=== PATIENT | male | born 1990 | race Caucasian/White ===

== ENCOUNTER 2019-01-07 16:20 | Emergency (ER) | payer MEDICAID, OTHER ==
[~2019-01-07] VITALS: Ht 190.5 cm; Wt 86.2 kg
--- NOTE | 2019-01-07 16:40 | NUR ---
BIB [employer], PT STATED SWALLOWED A BAG OF FENTANYL. PATIENT A/OX4, BREATHING EVEN AND UNLABORED, NO SOB NOTED, PLACED ON THE MONITOR, VSS. WILL CONTINUE TO MONITOR.
[2019-01-07] MEDS ORDERED: IV NS 0.9% 1,000 ML BAG IV ONE (17:00)
[2019-01-07 17:11] LABS: BASOPHILS % (AUTO) 0.7 % (0.0-2.0); EOSINOPHILS % (AUTO) 2.4 % (0.0-6.0); HEMATOCRIT 39 % (39-51); HEMOGLOBIN 13.8 g/dL (13.5-17.5); LYMPHOCYTES # (AUTO) 1.3 /CMM (0.8-4.8); LYMPHOCYTES % (AUTO) 18.5 % (20.0-44.0); MEAN CORPUSCULAR HGB CONC 35 g/dl (31.0-36.0); MEAN CORPUSCULAR VOLUME 83 fL (80-96); MONOCYTES # (AUTO) 0.7 /CMM (0.1-1.30); NEUTROPHILS # (AUTO) 4.6 /CMM (1.8-8.9); NEUTROPHILS % (AUTO) 68.4 % (43.0-81.0); PLATELET COUNT (AUTO) 186 /CMM (150-450); RED BLOOD CELL COUNT(AUTO) 4.76 MIL/uL (4.5-6.0); WHITE BLOOD COUNT (AUTO) 6.8 K/uL (4.3-11.0)
[2019-01-07 17:24] LABS: CARBON DIOXIDE 28 mmol/L (21-32); CHLORIDE 103 mmol/L (98-107); CREATININE 1.3 mg/dL (0.6-1.3); GLUCOSE 112 mg/dL (74-106); POTASSIUM 3.7 mmol/L (3.5-5.1); SODIUM SERUM 139 mmol/L (136-145); UREA NITROGEN, BLOOD 15 mg/dL (7-18)
[2019-01-07 17:29] LABS: ALCOHOL, BLOOD < 3 mg/dL (0-0)
--- NOTE | 2019-01-07 18:07 | NUR ---
GEOVANY ISSUED THE PATIENT A TICKET AND THEN LEFT, PATIENT IS RELEASED FROM CUSTODY. PATIENT A/OX4, BREATHING EVEN AND UNLABORED, NO SOB NOTED. PATIENT IN NO DISTRESS. PATIENT INSISTED ON LEAVING AMA, DR. DAY AWARE AND STATED HE CAN LEAVE AMA IF HE WANTS TO. EXPLAINED RISKS, BENEFITS, AND ALTERNATIVES TO THE PATIENT AND STILL INSISTED ON LEAVING. PIV REMOVED. PATIENT LEFT IN STABLE CONDITION.
[2019-01-07 18:11] VITALS: BP 160/92
== END 2019-01-07 18:13 | disposition left against medical advice (07) ==
LOC: ER 16:25
DX: T40.4X5A Adverse effect of other synthetic narcotics, initial encounter (principal); Z60.2 Problems related to living alone; Y92.89 Other specified places as the place of occurrence of the external cause
CPT/HCPCS: 36415; 71250; 74176; 80048; 80307; 85025; 85730; 99284; J7030; G0480

== ENCOUNTER 2019-02-07 15:52 | Inpatient (IN) | payer MEDICAID, OTHER ==
[~2019-02-07] VITALS: Ht 188 cm; Wt 82.1 kg
--- NOTE | 2019-02-07 16:17 | NUR ---
PT BIB [employer] [employer] IN CUSTODY WITH A C/O FOREIGN BODY INGESTION. PT ALLEGEDLY SWALLOWED A BAG OF FENTANYL PRIOR TO BEING ARRESTED. PT WAS TRIAGED AND TAKEN TO ER #[id number]. PT IS AA&O X 4. PT STATED THAT HE HAS DONE THIS BEFORE.
--- NOTE | 2019-02-07 16:17 | NUR ---
Radha george in ED - 02/07/19 at 1624 by AYLA PT [facility] WITH A C/O FOREIGN BODY INGESTION. PT ALLEGEDLY SWALLOWED A BAG OF FENTANYL PRIOR TO BEING ARRESTED. PT WAS TRIAGED AND TAKEN TO ER #[id number]
--- NOTE | 2019-02-07 16:22 | NUR ---
VIRA, NURSE ORTHO IS AT THE BEDSIDE.
[2019-02-07 16:34] LABS: BASOPHILS # (AUTO) 0.1 /CMM (0.0-0.2); BASOPHILS % (AUTO) 0.8 % (0.0-2.0); HEMATOCRIT 44 % (39-51); HEMOGLOBIN 14.8 g/dL (13.5-17.5); LYMPHOCYTES # (AUTO) 2.4 /CMM (0.8-4.8); LYMPHOCYTES % (AUTO) 31.8 % (20.0-44.0); MEAN CORPUSCULAR HGB CONC 34 g/dl (31.0-36.0); MEAN CORPUSCULAR VOLUME 84 fL (80-96); MONOCYTES % (AUTO) 12.7 % (2.0-12.0); NEUTROPHILS % (AUTO) 51.7 % (43.0-81.0); PLATELET COUNT (AUTO) 168 /CMM (150-450); RED BLOOD CELL COUNT(AUTO) 5.17 MIL/uL (4.5-6.0); WHITE BLOOD COUNT (AUTO) 7.7 K/uL (4.3-11.0)
--- NOTE | 2019-02-07 16:37 | NUR ---
CALLED POISON [facility], TRANSFERRED CALL TO
[2019-02-07 16:42] LABS: CALCIUM, SERUM 9.4 mg/dL (8.5-10.1); CARBON DIOXIDE 30 mmol/L (21-32); CHLORIDE 105 mmol/L (98-107); GLUCOSE 99 mg/dL (74-106); POTASSIUM 4.2 mmol/L (3.5-5.1); SODIUM SERUM 141 mmol/L (136-145); UREA NITROGEN, BLOOD 21 mg/dL (7-18)
[2019-02-07] MEDS ORDERED: ACTIVATED CHARCOAL 25 GM/120 ML TUBE ONE (16:46)
--- NOTE | 2019-02-07 16:50 | NUR ---
PT DRANK THE ACTIVATED CHARCOLE AND TOLERATED PO WELL.
--- NOTE | 2019-02-07 16:53 | NUR ---
IV INSERTION ATTEMPTED ON LAC UNSUCCESSFUL. PT IS A HARD STICK.
[2019-02-07 16:56] LABS: ALANINE AMINOTRANSFERASE 23 U/L (12-78); ALBUMIN 3.5 g/dL (3.4-5.0); ALCOHOL, BLOOD < 3 mg/dL (0-0); ALKALINE PHOSPHATASE 75 U/L (46-116); ASPARTATE AMINOTRANSFERASE 26 U/L (15-37); BILIRUBIN,DIRECT 0.1 mg/dL (0.0-0.2); BILIRUBIN,TOTAL 0.5 mg/dL (0.2-1.0); TOTAL PROTEIN, SERUM 7.2 g/dL (6.4-8.2)
--- NOTE | 2019-02-07 16:57 | NUR ---
PT LEFT FOR CT VIA [facility]
--- NOTE | 2019-02-07 16:58 | NUR ---
PT IS STILL UNABLE TO GIVE A URINE SAMPLE AT THIS TIME.
[2019-02-07 16:59] LABS: ACETAMINOPHEN < 2 ug/ml (10-30); SALICYLATE < 2.8 mg/dL (2.8-20.0)
[2019-02-07] MEDS ORDERED: ACTIVATED CHARCOAL 25 GM/120 ML TUBE PO ONE (17:00)
--- NOTE | 2019-02-07 17:03 | NUR ---
CALLED NURSING SUP. FOR MS BED
--- NOTE | 2019-02-07 17:22 | NUR ---
MS [id number]
--- NOTE | 2019-02-07 17:29 | NUR ---
REPORT GIVEN TO MISBAH FIELDS.
[2019-02-07] MEDS ORDERED: IV NS 0.9% 1,000 ML BAG IV ONE ×2 (17:30→18:00)
--- NOTE | 2019-02-07 18:05 | NUR ---
SPOKE TO [facility] TECH, VAN RE: PT BEING UNSTABLE.
--- NOTE | 2019-02-07 18:27 | NUR ---
PT IS BEING TRANSPORTED TO [place] [facility]IA [facility].
--- NOTE | 2019-02-07 19:30 | NUR ---
RN OPENING NOTES PT RECEIVED ASLEEP. RESPONSIVE TO NAME/TACTILE STIMULI. DOZING UPON ASKING HIM QUESTIONS BUT A/OX3. ON ROOM AIR, BREATHING EVEN AND UNLABORED. NO S/S OF ACUTE RESPIRATORY DISTRESS AT THIS TIME. IV TO RIGHT HAND PATENT AND INTACT. BELONGINGS LEFT IN DIRTY UTILITY ROOM WITH LABELS PLACED ON IT. ID/INSURANCE AND CHECKS THAT ARE NOT IN HIS NAME PLACED IN BAG WITH HIS LABEL ON IT. AND SENT DOWN TO NURSING PAD MACHINE OFFBEARER SAFE, DOCUMENTED ON BELONGINGS LIST. REFUSING TO BE PLACED INTO HOSPITAL GOWN AND SKIN CHECK AT THIS TIME. BED IN LOW/LOCKED POSITION WITH HOB ELEVATED, CALL LIGHT IN REACH. BILAT. UPPER SIDE RAILS IN PLACE AND BED ALARM ON FOR SAFETY. WILL CONTINUE TO CLOSELY MONITOR. ALSO PAGED DR. NANCY BURTON FOR ADMITTING ORDERS
--- NOTE | 2019-02-07 19:55 | NUR ---
RN NOTES NNACY BURTON MADE AWARE OF CT ABDOMEN RESULT
[2019-02-07 20:00] VITALS: BP 138/71
--- NOTE | 2019-02-07 20:00 | NUR ---
RN NOTES ON TELE MONITOR SB 58
--- NOTE | 2019-02-07 20:51 | NUR ---
RN JAE HINOJOSA FROM POISON CONTROL CALLED ASKING FOR UPDATES REGARDING PT. PER ASHISH, THEY GIVE GOLYTELY VIA NGT 1-2L/HOUR FOR 3-4 HOURS OR UNTIL CLEAR (DUE TO IT BEING DIFFICULT FOR PT'S TO CONSUME THAT MUCH LIQUID IN SUCH A SHORT AMOUNT OF TIME). PRE MEDICATE WITH ZOFRAN AND PROTONIX. IF PT BEGINS TO VOMIT OR HAVE ABDOMINAL DISTENTION, HOLD AND RESUME PT TOLERATES. LOW DOSE PRN NARCAN ORDER. FOR ANY QUESTIONS, WE MAY CALL
[2019-02-07] MEDS ORDERED: PEG 3350/NA SULF,BICARB,CL/KCL 4,000 ML BOTTLE NG ONE (21:00)
--- NOTE | 2019-02-07 21:00 | NUR ---
RN NOTES PLACED ORDER FOR GOLYTELY AT 2049. CALLED PHARMACY TO DELIVER BEFORE THEY CLOSED. UNABLE TO REACH THEM. MARGIE TURCIOS NURSING RACKING MACHINE OPERATOR FOR GOLYTELY. SHE NOTIFIED DIE REPAIR MACHINIST PHARMACY TO DELIVER 2 JUGS, WILL DELIVER SOON. INFORMED PT ON PLAN FOR MY SHIFT. REFUSING NGT INSERTION DESPITE EDUCATION X3. VERBALIZES UNDERSTANDING OF RISKS/ BENEFITS OF NGT INSERTION ESPECIALLY WITH GOLYTELY. WILLING TO DRINK ALL OF IT INSTEAD.
--- NOTE | 2019-02-07 21:16 | NUR ---
RN NOTES SPOKE TO NANCY BURTON AND INFORMED HIM OF POISON CONTROL'S PROTOCOL. OKAY TO START 2 JUGS OF GOLYTELY, PROTONIX 40MG IV ONCE, ZOFRAN 4MG IV Q4H PRN. OKAY TO INSERT NGT. WILL CARRY OUT.
[2019-02-07] MEDS ORDERED: IV NS 0.9% 1,000 ML IV PRN (21:18)
[2019-02-07] MEDS ORDERED: PANTOPRAZOLE 40 MG VIAL IV SCH (21:30)
[2019-02-07] MEDS ORDERED: ZOLPIDEM TARTRATE 5 MG TABLET PO PRN (21:30)
[2019-02-07] MEDS: ENOXAPARIN SODIUM 40 MG/0.4 ML DISP.SYRIN SQ SCH ×2 (21:30→22:24)
[2019-02-07] MEDS ORDERED: ACETAMINOPHEN 325 MG TABLET PO PRN (21:30)
[2019-02-07] MEDS ORDERED: ONDANSETRON HCL/PF 4 MG/2 ML VIAL IV PRN (21:30)
[2019-02-07] MEDS ORDERED: Z GUARD REMEDY 2 OZ OINT TP PRN (21:30)
[2019-02-07] MEDS ORDERED: LACTULOSE 10 G/15 ML UDC (PYXIS) PO ONE (21:30)
[2019-02-07] MEDS ORDERED: MAGNESIUM CITRATE 296 ML BOTTLE PO ONE (21:30)
[2019-02-07] MEDS ORDERED: PANTOPRAZOLE 40 MG VIAL ONE (21:46)
[2019-02-07] MEDS ORDERED: NALOXONE HCL 0.4 MG/ML AMPUL IV PRN (22:00)
[2019-02-08] VITALS: BP 130/80
--- NOTE | 2019-02-08 01:47 | NUR ---
RN NOTES DESPITE FREQUENT ENCOURAGEMENT TO DRINK GOLYTELY, PT ONLY CONSUMED APPROX 1/2 OF THE FIRST JUG OF GOLYTELY SO FAR. PT REFUSED TO USE BSC AND USED RESTROOM AND FLUSHED THE TOILET DESPITE ASKING HIM NOT TO. STATES HE ONLY HAD A "SMALL BM". THIS IS HIS FIRST TIME GETTING UP TO HAVE A BM. MORE OF THE GOLYTELY ENCOURAGED BEFORE STEPPING OUT OF THE ROOM BUT STATES HE IS "SO OVER THIS". EDUCATION PROVIDED ON RISKS/BENEFITS AND PT VERBALIZED UNDERSTANDING BUT PT BECOMING UPSET AND THREATENING TO LEAVE AMA. ABLE TO CALM PT DOWN AND EXPLAINED ONCE AGAIN RISKS OF THE BAG BREAKING AND THAT IT CAN BE A POTENTIALLY FATAL DOSE. PT STATES "ITS NOT! TRUST ME, ITS FINE". IV FLUIDS RESUMED. WILL CONTINUE TO MONITOR CLOSELY FOR FENTANYL OVERDOSE
--- NOTE | 2019-02-08 02:42 | NUR ---
RN NOTES SPOKE TO DON FROM POISON CONTROL. UPDATES REGARDING PT PROVIDED INCLUDING LATEST VITAL SIGNS, MEDS GIVEN SINCE BEGINNING OF SHIFT AND PT'S NONCOMPLIANCE WITH CARE. AWARE OF PRN NARCAN ORDER. CONTINUE CLOSE MONITORING AND POISON CONTROL WILL FOLLOW UP IN THE MORNING.
[2019-02-08 04:00] VITALS: BP 130/82
--- NOTE | 2019-02-08 04:30 | NUR ---
RN NOTES DEBIT CARDS/CREDIT CARDS NOT IN PT'S NAME PLACED IN THE SAFE IN THE NURSING RANGE EXAMINER'S OFFICE. Addendum: 02/08/19 at 0431 by ARSH NATH RN IN THE SAFE
--- NOTE | 2019-02-08 04:38 | NUR ---
RN NOTES PT ASLEEP, RESPONSIVE TO NAME. BREATHING EVEN AND UNLABORED. RESPIRATORY DEPTH WNL. NO S/S OF ACUTE RESPIRATORY DISTRESS. WILL CONTINUE TO MONITOR CLOSELY
--- NOTE | 2019-02-08 06:29 | NUR ---
TELE/RN CLOSING NOTES PT ASLEEP, RESPONSIVE TO NAME. A/OX3. BREATHING REMAINS EVEN AND UNLABORED, DEPTH WNL. IN NO ACUTE RESPIRATORY DISTRESS. DENIES SOB OR DYSPNEA. SPO2 >92% ON RA. ON TELE MONITOR SHOWING SB 54. IV TO RIGHT HAND REMAINS PATENT AND INTACT RUNNING IVF ORDERED. BSC ENCOURAGED HOWEVER PT REFUSING. ENCOURAGED GOLYTELY EVERY HALF AN HOUR SINCE 2AM HOWEVER PT STILL STRONGLY REFUSING TO DRINK ANY MORE DESPITE MULTIPLE EDUCATION ATTEMTPS. TAPE LIBRARIAN AWARE. PT DOES NOT WANT TO TAKE ANY MORE LAXATIVES, STATING IM ALREADY FLUSHING IT OUT, ALTHOUGH HES ONLY GONE TO THE RESTROOM TWICE AND FLUSHED. SUCTION AND OXYGEN SETUP. NO SIGNIFICANT CHANGES OVERNIGHT. CLOSE MONITORING DONE. BED REMAINS IN LOW/LOCKED POSITION WITH CALL LIGHT IN REACH. HOB ELEVATED. BILAT. UPPER SIDE RAILS IN PLACE AND BED ALARM ON FOR SAFETY. POISON CONTROL TO FOLLOW UP THIS MORNING. PT ALSO REFUSED AM LABS. WILL ENDORSE TO ONCOMING SHIFT DONN.
--- NOTE | 2019-02-08 07:54 | NUR ---
MS RN OPENING NOTES RECEIVED PATIENT IN BED ASLEEP, AROUSABLE. RESPONSIVE TO VERBAL AND TACTILE STIMULI. HAS EPISODES OF DOSING OFF. PATIENT DISCONNECTED SELF FROM IV TUBING, EDUCATION PROVIDED. IV TO RT HAND G#20 INTACT AND PATENT. NO SOB. DENIES ANY C/O PAIN NOR DISCOMFORT AT THIS TIME. BED IN LOWEST POSITION. BED ALARM ON. ON TELE FOR MONITORING. CALL LIGHT WITHIN REACH.
--- NOTE | 2019-02-08 08:25 | NUR ---
MS RN NOTES PATIENT REQUESTING TO LEAVE AMA DESPITE EXPLANATION OF RISKS, STATED TO PATIENT THERE IS A POSSIBILITY OF IF HE LEAVES AMA. PATIENT VERBALIZED UNDERSTANDING STATES HE KNOWS BETTER THIS IS NOT THE FIRST TIME AND HE KNOWS WHAT HIS BODY CAN HANDLE. DR. NANCY BURTON MADE AWARE OF PATIENTS REQUEST. PATIENT SIGNED AMA FORM. ALL BELONGINGS RETURNED TO PATIENT EXCEPT CARDS WITH DIFFERENT NAMES. PATIENT LEFT WITH BIKE. PATIENT APPEARS IN STABLE CONDITION.
--- NOTE | 2019-02-08 09:40 | NUR ---
Social service consult requested by Dr. Dutch Morley for polysubstance abuse. Pt. is a 28-year-old Male with a history of polysubstance abuse, who was brought in police custody for evaluation after swallowing a bag of Fentanyl while attempting to get away from police. Per ED H&P, the patient also admitted to using meth and heroin earlier that day. SW is not able to assess pt. this morning, due to pt. leaving AMA approximately 8-8:30AM.
== END 2019-02-08 08:15 | disposition left against medical advice (07) | DRG 812 ==
LOC: ER 15:54 → MED 18:09
PROVIDERS: ADMIT Nurse Practitioner Acute Care; ATTEND Internal Medicine
DX: T40.4X1A Poisoning by other synthetic narcotics, accidental (unintentional), initial encounter (principal); F11.10 Opioid abuse, uncomplicated; F15.90 Other stimulant use, unspecified, uncomplicated; F17.200 Nicotine dependence, unspecified, uncomplicated; Y92.89 Other specified places as the place of occurrence of the external cause
CPT/HCPCS: 36415; 71045-TC; 80048-TC; 80076-TC; 85025-TC; 87081-TC; C9113; G0378; G0480; J1650; J7030

== ENCOUNTER 2019-07-01 21:52 | Emergency (ER) | payer OTHER, MEDICAID ==
[~2019-07-01] VITALS: Ht 188 cm; Wt 88.5 kg
--- NOTE | 2019-07-01 23:01 | NUR ---
BETTY LAWSON, INCUSTODY. TO ER BED 11. AAOX4. NO RESP DISTRESS NOTED. AMBULATORY. BROUGHT IN FOR MEDICAL CLEARANCE W/ C/O SYNCOPAL EPISODE. PT REPORTS THAT HE PASSED OUT, FELL AND HIT THE BACK OF HIS HEAD. NOTED BUMP ON THE RIGHT OCCIPITAL AREA. NO SKIN BREAK DOWN NOTED. MD WAS AT BEDSIDE FOR EVAL. ORDERS RECEIVED, NOTED AND CARRIED OUT. UNABLE TO OBTAIN IV ACCESS D/T PT WAS A IV DRUG USER AND VEINS ARE SCARED. MD AWARE.
--- NOTE | 2019-07-01 23:28 | NUR ---
pt to ct on [facility]rec[facility]
[2019-07-01] MEDS ORDERED: ACETAMINOPHEN 325 MG TABLET PO ONE (23:30)
[2019-07-01] MEDS ORDERED: ACETAMINOPHEN 325 MG TABLET ONE (23:47)
[2019-07-01 23:57] LABS: BASOPHILS # (AUTO) 0.1 /CMM (0.0-0.2); BASOPHILS % (AUTO) 0.6 % (0.0-2.0); HEMATOCRIT 44 % (39-51); HEMOGLOBIN 15.3 g/dL (13.5-17.5); LYMPHOCYTES # (AUTO) 3.6 /CMM (0.8-4.8); LYMPHOCYTES % (AUTO) 28.7 % (20.0-44.0); MEAN CORPUSCULAR HGB CONC 35 g/dl (31.0-36.0); MEAN CORPUSCULAR VOLUME 81 fL (80-96); MONOCYTES # (AUTO) 1.2 /CMM (0.1-1.30); MONOCYTES % (AUTO) 9.4 % (2.0-12.0); NEUTROPHILS # (AUTO) 7.4 /CMM (1.8-8.9); NEUTROPHILS % (AUTO) 59.3 % (43.0-81.0); PLATELET COUNT (AUTO) 167 /CMM (150-450); RED BLOOD CELL COUNT(AUTO) 5.51 MIL/uL (4.5-6.0); WHITE BLOOD COUNT (AUTO) 12.5 K/uL (4.3-11.0)
--- NOTE | 2019-07-02 | NUR ---
MD AWARE PT HAVE NO IV LINE.
[2019-07-02 00:01] LABS: CALCIUM, SERUM 9.2 mg/dL (8.5-10.1); CREATININE 0.9 mg/dL (0.6-1.3); POTASSIUM 3.9 mmol/L (3.5-5.1)
[2019-07-02 00:33] LABS: EOSINOPHILS % (MANUAL) 1 % (0-4); LYMPHOCYTES % (MANUAL) 33 % (16-48); MONOCYTES % (MANUAL) 5 % (0-11.0); NEUTROPHILS % (MANUAL) 61 (42-76)
--- NOTE | 2019-07-02 00:56 | NUR ---
PT IS MEDICALLY CLEARED FOR INCARCERATION. PT IS RELEASED UNDER THE CARE OF GEOVANY. PT IS IN STABLE CONDITION. AMBULATORY W/ STEADY GAIT.
[2019-07-02 01:01] VITALS: BP 133/80
== END 2019-07-02 01:02 ==
LOC: ER 22:03
DX: R55 Syncope and collapse (principal); R51 Headache; R56.9 Unspecified convulsions; F11.90 Opioid use, unspecified, uncomplicated; F14.10 Cocaine abuse, uncomplicated; F10.10 Alcohol abuse, uncomplicated; F17.200 Nicotine dependence, unspecified, uncomplicated; Y90.9 Presence of alcohol in blood, level not specified; Z60.2 Problems related to living alone; W18.39XA Other fall on same level, initial encounter; Y93.89 Activity, other specified; Y92.89 Other specified places as the place of occurrence of the external cause; Y99.8 Other external cause status
CPT/HCPCS: 36415; 70450-TC; 80048-TC; 85025-TC